=== PATIENT | male | born 1950 | race African-American/Black ===

== ENCOUNTER 2017-01-28 16:08 | Inpatient (IN) | payer OTHER, MEDICARE ==
[~2017-01-28] VITALS: Ht 177.8 cm; Wt 67.6 kg
--- NOTE | ~2017-01-28 | HC ---
[facility] [place] [address] CONSULTATION Name: GLENDY WICK Room #: 315-P ADM IN M.R.#: [id number] Admission: 01/28/17 Attend Phys: Charles Hogue Discharge: Date of : 52 Report #: [id number] THIS REPORT FOR: //name// CC: Oral Kellogg DATE OF SERVICE: 02/05/2017 We were asked to see the patient by Dr. Wang. HISTORY OF PRESENT ILLNESS: The patient is a 66-year-old admitted on 01/28/2017 with shortness of air. There is a history of shortness of breath with exertion and labored breathing over the week prior to admission. The patient has a home health nurse and the patient's family reports that the nurse "heard a lot of fluid on the left side." The patient states he has had a productive cough for months, but that this has not changed significantly. Sputum is clear without purulence or blood. The patient states there is some fluid retention at home as well. The patient reports he has chronic pulmonary problems. He is typically on 3-4 liters of oxygen at home. He walks very little and uses a wheelchair foremost for ambulation. There is no history of fever, chills, hemoptysis or GI complaints, but patient is a vague historian. He does state he fell, but cannot date the fall for me at all. He thinks it is in the past year and states he fell when bending over trying to reach article on the floor and states that related to the fall was excessive amounts of fentanyl patch. PAST MEDICAL HISTORY: Also significant for chronic obstructive pulmonary disease, respiratory failure, glaucoma, hypertension, herpes zoster, anxiety, heart failure, history of ethanol abuse, chronic pain, anemia, atrial fibrillation, encephalopathy and pressure ulcers. MEDICATIONS: At home alprazolam, Lyrica, fluticasone spray, albuterol, tamsulosin, Lovenox, Pulmicort, meropenem. ALLERGIES: CHLORPROMAZINE states patient has anaphylactic reaction; PROCHLORPERAZINE, anaphylaxis; THIORIDAZINE, anaphylaxis; TRIHEXYPHENIDYL, anaphylaxis, ULTANE, anaphylaxis. SOCIAL HISTORY: The patient states he is a former smoker and drinker, but has not consumed alcohol or tobacco in the last 3 years. REVIEW OF SYSTEMS: CONSTITUTIONAL: Negative for fever or chills. EYES: Negative for eye pain, visual change. [facility] [address] [place] [address] CONSULTATION Name: GLENDY WICK Room #: 315-P [facility] IN .R.#: [id number] Admission: 01/28/17 Attend Phys: Charles Hogue Discharge: Date of : 52 Report #: [id number] HEENT: Negative for hearing changes, ear drainage, neck stiffness, nasal or oral problems. RESPIRATORY: Positive for shortness of breath on exertion, sputum production. CARDIAC: Positive for fluid retention, negative for angina. GASTROINTESTINAL: Negative for nausea, vomiting, abdominal pain. GENITOURINARY: Negative for burning, frequency, urgency or blood. MUSCULOSKELETAL: Negative for bone pain, joint pain, back pain. SKIN: Negative for rash or infection. NEUROLOGIC: Negative for motor or sensory dysfunction. PHYSICAL EXAMINATION: VITAL SIGNS: Temperature 37.1, heart rate 77, respiratory rate 18, blood pressure 124/90, O2 sat 100% on 4 liters nasal cannula. HEENT: Normocephalic. Pupils are round and equal. No icterus. Mild arcus. NECK: No lymphadenopathy, no bruit. CHEST: Distant breath sounds. I do not hear rales or rhonchi. HEART: Rhythm is regular. Heart sounds are distant. ABDOMEN: Soft, no mass, no tenderness, question of fluid wave. EXTREMITIES: Pulses 2+ femoral, 2+ popliteal bilateral, right foot is in boots for heel ulcer. SKIN: No other rash or infection noted other than the skin problems related to the foot. NEUROLOGIC: No obvious motor or sensory dysfunction, although the patient does appear to be generally weak. He is oriented and appropriate. PSYCHIATRIC: Shows insight into problems, answers questions appropriately, but is a vague historian and he is vague on his answers to the review of systems questions. Radiology, patient has a new findings on his CT scan for which we were consulted. There is an air fluid level in the fissure between the middle and upper lobe with some pleural thickening, this is a loculated hydropneumothorax. In addition, there is quite close to pulmonary artery that is also seen right at the fissure. There does not appear to be any bleeding or extravasation, however. ASSESSMENT AND PLAN: This appears to be odd findings that does not have obvious clinical relevance, there is no evidence of acute infection. White blood cell count is actually low, which could be a common of normal variant related to the patient's status. The patient is afebrile. There is no history of change in sputum. The patient had a chest x-ray in June. There was some focal thickening seen in the fissure with generalized scarring. There is a history of a moderate size pseudotumor seen on previous studies. In any event, the findings is odd radiographically, it does not appear to have [address] [address] CONSULTATION Name: GLENDY WICK Room #: 315-P ADM IN M.R.#: [id number] Admission: 01/28/17 Attend Phys: Charles Hogue Discharge: Date of : 52 Report #: [id number] acute clinical significant, and the patient is generally weak and could not sustain any major procedure without risk. It is my recommendation and I have discussed this with Dr. Wang who shares this opinion that we should follow this for the time being and to avoid any invasive procedure at this point. Thank you for the consult. <ELECTRONICALLY SIGNED> By: Mauricio Julian MD 02/06/17 0933 [id number] [id number] Mauricio Julian MD /nt
--- NOTE | ~2017-01-28 | HC ---
[facility] [place] [address] CONSULTATION Name: GLENDY WICK Room #: 315-P ADM IN M.R.#: [id number] Admission: 01/28/17 Attend Phys: Charles Hogue Discharge: Date of : 52 Report #: [id number] THIS REPORT FOR: //name// CC: ORAL BALBUENA MD PRIMARY CARE PHYSICIAN: Oral Kellogg M.D. REFERRAL PHYSICIAN: Reagan Balbuena M.D. REASON FOR REFERRAL: Dyspnea. HISTORY OF PRESENT ILLNESS: The patient is a 66-year-old -[place] male with severe end-stage COPD, presents with progressive dyspnea. A pulmonary consultation was requested. The patient is known to this physician. He has known very severe COPD for many years. It is felt to be end stage. As a result, he has required mechanical ventilation with subsequent tracheostomy which was eventually decannulated. He has had numerous hospitalizations along with long-term care stay due to severe pulmonary disease and debility. Through all this, he is still able to do fairly well. Now he is quite debilitated. He states that he does not walk any more, primarily stays in bed. He currently resides at home with home health nurse. He gets help from his family. He had been in his usual state of health until about past week when he started to notice increasing dyspnea. He had a cough productive of secretions but unable to clear much of his secretions. Otherwise, denies any recent febrile illness, chest pain or hemoptysis. He has chronic hypoxic respiratory failure, on 3 liters of O2 chronically. He is on nebulized Pulmicort twice a day. He prefers a metered dose inhaler instead of nebulized bronchodilators. He states that it works better. He is currently on Advair along with Ellipta that he uses 1 puff once a day. He has albuterol metered dose inhaler, that he uses 2 puffs p.r.n. PAST MEDICAL HISTORY: As mentioned above, end-stage COPD with a past history of respiratory failure, tracheostomy tube, was decannulated about a year ago; progressive debility and weakness due to severe pulmonary impairment, now primarily bedridden; hypertension; anxiety disorder; history of heart failure; chronic pain syndrome; anemia of chronic disease and history of atrial [facility] [address] [place] [address] CONSULTATION Name: GLENDY WICK LILY DALE Room #: 315-P [facility] IN M.R.#: [id number] Admission: 01/28/17 Attend Phys: Charles Hogue Discharge: Date of : 52 Report #: [id number] fibrillation. PAST SURGICAL HISTORY: As mentioned above. ALLERGIES: To THIORIDAZINE, CHLORPROMAZINE and TRIHEXYPHENIDYL, reactions are anaphylaxis. He is also allergic to ____ which causes severe anaphylaxis. FAMILY HISTORY: Notable for gastric carcinoma in the father who . Mother . She had a history of lung cancer. SOCIAL HISTORY: He is , has 5 children. Continues to live at home with home health. He has a history of alcohol abuse in the past, but has stopped drinking. History of tobacco use, also stopped smoking few years ago, along with marijuana use. REVIEW OF SYSTEMS: As mentioned above; otherwise, is notable for progressive weakness and debility. Otherwise, 10-point system review negative. PHYSICAL EXAMINATION: GENERAL: He is awake and alert, in moderate respiratory distress. VITAL SIGNS: Temperature is 98.6 degrees Fahrenheit, pulse is 94, respiratory rate is 16, blood pressure 100/66 mmHg and saturation is 93%. HEENT: Normocephalic and atraumatic. NECK: Supple, without any lymphadenopathy or thyromegaly. CHEST: Breath sounds are reduced bilaterally with mild expiratory wheezes. Coarse breath sounds are heard in the bases. CARDIOVASCULAR: Normal S1 and S2. There are no murmurs, rubs or gallop. There is no JVD. There is no carotid bruit. Pulses are 2+/4+ bilaterally. ABDOMEN: Soft and nontender. No organomegaly or masses felt. GENITOURINARY: Deferred. RECTAL: Deferred. EXTREMITIES: No cyanosis or clubbing but remarkable 3/4+ bilateral pretibial edema. LABORATORY DATA: Chest x-ray shows cardiomegaly, increased interstitial markings, otherwise no obvious infiltrates. Electrolytes unremarkable except potassium of 3.4, bicarbonate is 41, creatinine is 1.2 and albumin 2.7. WBC 2600 without any evidence of bandemia, hemoglobin 11.1 and platelets are normal. Arterial blood gas revealed pH 7.36, pCO2 of 79 and pO2 of 63 on 3-1/2 liters of O2. IMPRESSION: 1. Rlypi-hy-szhsshq hypercapnic hypoxic respiratory failure due to exacerbation of chronic obstructive pulmonary disease. Based on the physical examination, the patient may have lower respiratory tract infection. 2. Chronic obstructive pulmonary disease, end stage, with exacerbation. [facility] [address] [place] [address] CONSULTATION Name: GLENDY WICK Room #: 315-P ADM IN M.R.#: [id number] Admission: 01/28/17 Attend Phys: Charles Hogue Discharge: Date of : 52 Report #: [id number] 3. Chronic hypercapnic hypoxic respiratory failure, on 3 liters of O2 chronically. 4. Progressive debility and weakness. 5. Lower extremity edema, may be related to malnutrition and hypoalbuminemia. Cor pulmonale cannot be ruled out given his severe pulmonary impairment. I agree with diuretic therapy. 6. Medical directive. He is a Full Code Blue. RECOMMENDATIONS: I agree with the current medical treatment, continue high dose corticosteroids, bronchodilators, mucolytics, IV fluids, broad spectrum antibiotics to cover for possible pneumonia and possible respiratory tract infection. Given his recent hospitalization, we will need to consider nosocomial organisms. Aspiration is also considered given his profound debility and weakness. DVT and GI prophylaxis will be addressed. Nutritional support is recommended. Overall, prognosis is poor given severe pulmonary impairment. The patient desires a Full Code Blue. Thank you for the consultation. <ELECTRONICALLY SIGNED> By: Drew Vallejo MD 02/09/17 1124 1227 [id number] Drew Vallejo MD /nt
--- NOTE | ~2017-01-28 | EKG ---
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 : 1950 Requested By: Dallas Hebert Order Number: [id number] MD: Darryl Alvarez Measurements Intervals [place] Rate: 81 P: -12 ME: 204 QRS: 93 QRSD: 110 T: 57 QT: 392 QTc: 455 Interpretive Statements Sinus rhythm Right axis deviation Borderline low voltage, extremity leads Baseline wander in lead(s) V4 Compared to ECG 11/18/2016 19:29:53 Sinus tachycardia no longer present ST (T wave) deviation no longer present Electronically Signed On 01-29-2017 8:05:56 CDT by Darryl Alvarez [email or web address] <ELECTRONICALLY SIGNED> By: Darryl Alvarez MD, [facility] 01/29/17 0805 1747 1747 Darryl Alvarez MD, [facility] /EPI
--- NOTE | ~2017-01-28 | H ---
[facility] [place] [address] HISTORY AND PHYSICAL Name: GLENDY WICK Room #: 315-P ADM IN M.R.#: [id number] Admission: 01/28/17 Attend Phys: Charles Hogue Discharge: Date of : 52 Report #: [id number] THIS REPORT FOR: //name// CC: Oral Kellogg DATE OF SERVICE: 01/28/2017 CHIEF COMPLAINT: Shortness of breath. HISTORY OF PRESENT ILLNESS: The patient is a 66-year-old gentleman with severe cardiopulmonary disease came in the Emergency Room with shortness of breath. Symptoms have progressed over 1-2 days' time. He denied any fever or chills or significantly productive cough. He has had multiple hospitalizations through the years related to his cardiopulmonary disease. Years ago, he was intubated and had a tracheostomy tube related to COPD and over about a 1-2 year time, gradually was weaned from the ventilator and subsequently decannulated. The last couple of years, he has been maintained at home generally on nasal cannula, although he has had exacerbations here at the hospital [facility] which required BiPAP. Currently, he only wears nasal cannula at home. PAST MEDICAL HISTORY: COPD; history of respiratory failure and intubation, ventilation about 3 years ago; emphysema; hypertension; herpes zoster; anxiety; history of CHF; chronic pain syndrome; anemia; has a reported history of atrial fibrillation. PAST SURGICAL HISTORY: Unknown. FAMILY HISTORY: Noncontributory. SOCIAL HISTORY: Remote chronic and alcohol use, but none currently. ALLERGIES: CHLORPROMAZINE, COMPAZINE, THORAZINE, TRIHEXYPHENIDYL, ULTANE. MEDICATIONS: Xanax 0.25 mg q. 6 hours p.r.n., Lyrica 25 mg t.i.d., Flonase nasal spray, albuterol inhaler, Flomax 0.4 mg, Advair 2 puffs b.i.d., increased the Ellipta 1 puff daily. REVIEW OF SYSTEMS: Denies headache, chest pain, abdominal pain, nausea, vomiting, diarrhea, constipation, dysuria, syncope. PHYSICAL EXAMINATION: VITAL SIGNS: Temperature 36.9, pulse 93, respirations 16, blood pressure 115/77, O2 sat 97% on liters. GENERAL: He is awake and alert, in no distress. LUNGS: Distant but clear. HEART: Regular. [facility] [address] [place] [address] HISTORY AND PHYSICAL Name: GLENDY WICK Room #: 315-P [facility] IN .R.#: [id number] Admission: 01/28/17 Attend Phys: Charles Hogue Discharge: Date of : 52 Report #: [id number] ABDOMEN: Soft, normoactive bowel sounds. EXTREMITIES: No edema. NEUROLOGIC: He has muscle atrophy throughout. LABORATORY DATA: White count is 2.6, hemoglobin 10.9, platelets 109, potassium 3.4. His BNP was 3100. Urinalysis was unremarkable. Chest x-ray suggested pulmonary edema. ASSESSMENT: 1. Acute on chronic diastolic congestive heart failure. 2. Chronic obstructive pulmonary disease. 3. Pulmonary hypertension. 4. Recent urinary retention. PLAN: He has been treated with IV Lasix and has had good response so far. His urine output is -2000 mL. A followup chest x-ray will be ordered and I will ask Dr. Wang to see him. Home medications to continue Lovenox for DVT prophylaxis. <ELECTRONICALLY SIGNED> By: Reagan Balbuena MD 01/30/17 0800 1016 1110 Reagan Balbuena MD /nt
[2017-01-28 16:08] VITALS: BP 132/77
[~2017-01-28 16:08] MED LIST: ACETAMINOPHEN500 M1 PO; ACIDOPHILUS1 EAC3 PO; ADVAIR HFA 230M12 GM INH; ALBUTEROL2.5 MG/0.1 INH; ALBUTEROL2.5 MG/0.5 INH; ALBUTEROL2.5 MG/31 INH; ALPRAZOLAM 0.0.25 M1 PO; BISACODYL SUPP10 MG RECTAL; CARVEDILOL3.125 MG PO; CATHFLO ACT2 MG/VIAL IV PUSH; CEFTRIAXONE40 MG/M1 IV; CIPROFLOXACIN500 M1 PO; CLORPACTIN WCS-92 GM IRRIG; COUMADIN 2.5MG2.5 M1 PO; COUMADIN 4 MG TA4 M1 PO; COUMADIN 5 MG TA5 M1 PO; CUBICIN500 MG IV; DAKIN'S473 M1; DORZOLAMIDE HCL10 ML OPHTHALMIC; DUONEB 2.5-0.5 M3 ML INH; ENOXAPARIN40 MG/0.1 SUBLING; ENOXAPARIN40 MG/0.1 SUBQ; FENTANYL PA25 MCG/HR TRANSDERM; FENTANYL PA50 MCG/HR TRANSDERM; FENTANYL PATCH75 MCG TRANSDERM; FLOMAX0.4 MG PO; FLONASE 0.05%50 MCG NASAL; FORTAZ1 GM IVPB; HYDRALAZINE 2525 MG PO; HYDROCODONE-APA1 TA1 PO; INCRUSE ELLI62.5 MCG IH; INCRUSE ELLI62.5 MCG INH; IPRAT-ALBUT 0.5-3 ML IH; KETOCONAZOLE60 GM TP; LACTULOSE10 GM/153 PO; LASIX 20 MG TAB20 MG PO; LASIX 40 MG TAB40 M2 PO; LATANOPROST 0.2.5 ML OPHTHALMIC; LATANOPROST2.5 ML OPHTHALMIC; LIDOCAINE TOP; LYRICA 50 MG50 MG PO; LYRICA25 MG PO; MELATONIN 5 MG1 EAC1 PO; MEROPENEM500 MG IV; METOPROLOL TART25 MG PO; MILK OF MA2400 MG/10 PO; MIRALAX17 GM PO; MUCINEX TA600 MG/TA2 PO; MUCUS ER600 MG PO; NORCO 10-325 T1 EACH PO; NORCO 5-325 TA1 EACH PO; PACERONE 200 M200 M1 PO; PAIN & FEVER325 MG PO; PEPCID20 MG PO; PIPERACIL-TA3.375 G1 IV; PREDNISONE 20 M20 MG PO; PREDNISONE 5 MG5 M1 PO; PULMICORT0.5 MG/21 INH; REMERON15 MG PO; ROCEPHIN 11 GM/1001 IV; SENNA LAXATIVE8.6 MG PO; SENNA PO; SENNA8.6 MG PO; SODIUM CHLORIDE10 ML FLUSH; SODIUM CHLORIDE10 ML IJ; SODIUM CHLORIDE50 M4 IVPB; SOLU-MEDRO40 MG/1 M1 IV PUSH; TRIAMCINOLONE A80 G2 TOP; UNICOMPLEX M TA1 TA1 PO; VANC750 IVPB; VANCOMYCIN HCL 11 G2 IV; VENTOLIN HFA 1818 GM INH; VITAMINC500 PO; XALATAN2.5 ML OPHTHALMIC; XANAX 0.25 MG0.25 MG PO; ZOSYN 3/0.373.375 G3 IV; ZOSYN 4.5 GRAM4.5 GM IV; [UNRECOGNIZED DRUG - REMARK] TRANSDERM
[2017-01-28 16:56] LABS: WBC 2.8 thou/uL (4.0-11.0)
[2017-01-28 16:58] LABS: HEMOGLOBIN 11.1 gm/dL (14.0-18.0); MANUAL DIFF YES; MCH 28.2 pg (26.0-34.0); MCHC 31.8 g/dL (28.0-37.0); MCV 88.8 fL (80.0-100.0); PLATELET COUNT 127 thou/uL (150-400); RBC 3.94 mil/uL (4.50-6.00); RDW 17.1 % (10.5-14.5)
[2017-01-28 17:21] LABS: ABSOLUTE NEUTROPHILS 2.1 thou/uL (1.4-8.2); ANISOCYTOSIS 1+; PLATELET ESTIMATE SLIGHTLY DECREASED; TOTAL CELL COUNT 100
[2017-01-28 17:22] LABS: HYPOCHROMASIA SLIGHT; LARGE PLATELETS FEW
[2017-01-28 18:12] LABS: URINE BILIRUBIN NEGATIVE (Negative); URINE BLOOD NEGATIVE (Negative); URINE COLOR YELLOW; URINE GLUCOSE-RANDOM* NEGATIVE (Negative); URINE KETONES NEGATIVE (Negative); URINE NITRITE NEGATIVE (Negative); URINE PROTEIN (DIPSTICK) 1+ (Negative); URINE UROBILINOGEN 0.2 E.U./dl (0.2-1.0)
[2017-01-28 18:26] LABS: HYALINE CASTS 0-3 Few /LPF (None Seen); SQUAMOUS None Seen /LPF (0-3); URINE WBC None Seen /HPF (0-5)
[2017-01-28 18:27] LABS: BACTERIA 1-9 Few /HPF (None Seen); CRYSTALS None Seen /LPF (None Seen); URINE RBC None Seen /HPF (0-2)
[2017-01-28 18:42] LABS: ANION GAP 1 mmol/L (7-16); BUN 15 mg/dL (7-18); CALCIUM 7.7 mg/dL (8.5-10.1); CHLORIDE 105 mmol/L (98-107); CO2 36 mmol/L (21-32); CREATININE 1.1 mg/dL (0.7-1.3); GLUCOSE 115 mg/dL (74-106); POTASSIUM 4.3 mmol/L (3.5-5.1); SODIUM 142 mmol/L (136-145)
[2017-01-28 18:54] LABS: ALBUMIN 2.7 g/dL (3.4-5.0); ALKALINE PHOSPHATASE 47 U/L (46-116); DIRECT BILIRUBIN < 0.1 mg/dL (<0.1-0.3); NT-PRO BRAIN NAT PEPTIDE 2341 pg/mL (<300); SGOT 17 U/L (15-37); SGPT 25 U/L (30-65); TOTAL BILIRUBIN 0.3 mg/dL (<0.1-1.0); TOTAL PROTEIN 5.7 g/dL (6.4-8.2); TROPONIN-I < 0.04 ng/mL (<0.04-0.07)
[2017-01-28 20:13] VITALS: BP 110/71
[2017-01-28 20:45] VITALS: BP 134/81
[2017-01-29 04:00] VITALS: BP 101/61
[2017-01-29 05:18] LABS: HEMATOCRIT 34.1 % (42.0-52.0); HEMOGLOBIN 10.9 gm/dL (14.0-18.0); MCH 28.3 pg (26.0-34.0); MCV 88.7 fL (80.0-100.0); RBC 3.85 mil/uL (4.50-6.00); RDW 16.3 % (10.5-14.5); WBC 2.6 thou/uL (4.0-11.0)
[2017-01-29 05:44] LABS: ALBUMIN 2.8 g/dL (3.4-5.0); CALCIUM 7.9 mg/dL (8.5-10.1); CREATININE 1.2 mg/dL (0.7-1.3); POTASSIUM 3.4 mmol/L (3.5-5.1); TOTAL BILIRUBIN 0.5 mg/dL (<0.1-1.0); TOTAL PROTEIN 6.1 g/dL (6.4-8.2)
[2017-01-29 08:04] VITALS: BP 115/77
[2017-01-29] MEDS ORDERED: INCRUSE ELLI62.5 MCG IH (09:05)
[2017-01-29] MEDS ORDERED: ADVAIR HFA 230M12 GM INH ×2 (09:07→09:09)
[2017-01-29 10:17] LABS: ABG SAMPLE TYPE ARTERIAL; BE(vivo) 15.9 mmol/L (-2 to +3); HCO3 44.6 mmol/L (22.0-26.0); LACTATE 0.59 mmol/L (0.5-2.0); O2(CT) 14.8 mL/dL (15.0-23.0); O2Hb 90.4 % (92.0-98.0); PO2 63.1 mmHg (80.0-100.0); pH 7.366 (7.360-7.450); sO2 90.2 % (92.0-98.0)
[2017-01-29 10:18] LABS: PCO2 79.6 mmHg (35.0-45.0); STICK SITE R.RADIAL
[2017-01-29 11:41] VITALS: BP 101/66
[2017-01-29 17:29] VITALS: BP 116/77
[2017-01-29 20:47] VITALS: BP 99/60
[2017-01-30 03:20] VITALS: BP 135/84
[2017-01-30 04:26] LABS: MCHC 31.8 g/dL (28.0-37.0)
[2017-01-30 04:27] LABS: HEMATOCRIT 34.7 % (42.0-52.0); MCH 27.9 pg (26.0-34.0); MCV 87.8 fL (80.0-100.0); RBC 3.95 mil/uL (4.50-6.00); RDW 16.1 % (10.5-14.5)
[2017-01-30 04:34] LABS: WBC 1.5 thou/uL (4.0-11.0)
[2017-01-30 04:36] LABS: CREATININE 1.5 mg/dL (0.7-1.3)
[2017-01-30 06:53] VITALS: BP 135/75
[2017-01-30 10:58] LABS: PROTIME 10.8 Seconds (9.3-11.4)
[2017-01-30 12:00] VITALS: BP 131/64
[2017-01-30 15:02] VITALS: BP 125/70
[2017-01-30 19:53] VITALS: BP 100/59
[2017-01-31 04:07] VITALS: BP 122/73
[2017-01-31 05:07] LABS: HEMATOCRIT 32.3 % (42.0-52.0); HEMOGLOBIN 10.3 gm/dL (14.0-18.0); MCH 27.9 pg (26.0-34.0); MCHC 31.9 g/dL (28.0-37.0); MCV 87.3 fL (80.0-100.0); RBC 3.7 mil/uL (4.50-6.00); RDW 15.9 % (10.5-14.5); WBC 2.9 thou/uL (4.0-11.0)
[2017-01-31 05:22] LABS: INR 1.1; PROTIME 11.4 Seconds (9.3-11.4)
[2017-01-31 05:28] LABS: CALCIUM 7.7 mg/dL (8.5-10.1); CREATININE 1.2 mg/dL (0.7-1.3); POTASSIUM 4.1 mmol/L (3.5-5.1)
[2017-01-31 07:50] VITALS: BP 122/89
[2017-01-31 12:09] VITALS: BP 112/81
[2017-01-31 17:33] VITALS: BP 131/72
[2017-01-31 19:39] VITALS: BP 122/73
[2017-02-01 04:09] VITALS: BP 140/76
[2017-02-01 04:45] LABS: INR 1.4; PROTIME 14.3 Seconds (9.3-11.4)
[2017-02-01 08:30] VITALS: BP 113/73
[2017-02-01 17:14] VITALS: BP 115/74
[2017-02-01 20:00] VITALS: BP 126/90
[2017-02-02 04:00] VITALS: BP 116/74
[2017-02-02 05:23] LABS: INR 1.7; PROTIME 17.7 Seconds (9.3-11.4)
[2017-02-02 05:26] LABS: CALCIUM 8.4 mg/dL (8.5-10.1); CREATININE 1.2 mg/dL (0.7-1.3); POTASSIUM 4.7 mmol/L (3.5-5.1)
[2017-02-02 08:53] VITALS: BP 150/87
[2017-02-02 16:25] VITALS: BP 120/81
[2017-02-02 20:00] VITALS: BP 108/85
[2017-02-03 05:31] LABS: INR 2.1; PROTIME 21.8 Seconds (9.3-11.4)
[2017-02-03 08:12] VITALS: BP 112/78
[2017-02-03 08:33] VITALS: BP 133/69
[2017-02-03 20:35] VITALS: BP 123/89
[2017-02-04 04:20] VITALS: BP 126/76
[2017-02-04 05:43] LABS: HEMATOCRIT 33.5 % (42.0-52.0); HEMOGLOBIN 10.6 gm/dL (14.0-18.0); MCHC 31.6 g/dL (28.0-37.0); MCV 88.6 fL (80.0-100.0); RBC 3.78 mil/uL (4.50-6.00); RDW 15.9 % (10.5-14.5); WBC 3.6 thou/uL (4.0-11.0)
[2017-02-04 05:56] LABS: INR 2.4; PROTIME 24.4 Seconds (9.3-11.4)
[2017-02-04 06:00] LABS: CALCIUM 8.2 mg/dL (8.5-10.1); CREATININE 1.3 mg/dL (0.7-1.3); POTASSIUM 4.6 mmol/L (3.5-5.1)
[2017-02-04 08:27] VITALS: BP 135/89
[2017-02-04 16:11] VITALS: BP 100/74
[2017-02-04 19:20] VITALS: BP 113/73
[2017-02-05 03:30] VITALS: BP 114/83
[2017-02-05 05:58] LABS: INR 2.5
[2017-02-05 06:00] LABS: CALCIUM 8.4 mg/dL (8.5-10.1); CREATININE 1.4 mg/dL (0.7-1.3); POTASSIUM 4.7 mmol/L (3.5-5.1)
[2017-02-05 08:46] VITALS: BP 129/91
[2017-02-05 15:34] VITALS: BP 124/90
[2017-02-05 21:00] VITALS: BP 120/80
[2017-02-06 08:17] LABS: CALCIUM 8.4 mg/dL (8.5-10.1); CREATININE 1.3 mg/dL (0.7-1.3); POTASSIUM 4.3 mmol/L (3.5-5.1)
[2017-02-06 08:46] LABS: INR 2.9
[2017-02-06 09:17] VITALS: BP 121/78
[2017-02-06 17:57] VITALS: BP 118/76
[2017-02-06 20:20] VITALS: BP 108/68
[2017-02-07 05:00] VITALS: BP 147/83
[2017-02-07 07:50] VITALS: BP 142/92
[2017-02-07 17:00] VITALS: BP 106/73
[2017-02-07 19:52] VITALS: BP 123/87
[2017-02-08] VITALS (8 sets, daily range): BP systolic 123–159; BP diastolic 73–94
[2017-02-08 06:36] LABS: INR 2.6; PROTIME 26.8 Seconds (9.3-11.4)
[2017-02-08 06:44] LABS: CALCIUM 8.2 mg/dL (8.5-10.1); CREATININE 1.1 mg/dL (0.7-1.3); POTASSIUM 4.7 mmol/L (3.5-5.1)
[2017-02-08] MEDS ORDERED: COUMADIN 2 MG TA2 M1 PO (13:09)
[2017-02-08] MEDS ORDERED: AUGMENTIN 875-1 EACH PO (13:09)
[2017-02-09 04:55] VITALS: BP 131/81
[2017-02-09 08:00] VITALS: BP 120/75
[2017-02-09] MEDS ORDERED: NORCO 10-325 T1 EACH PO (10:44)
[2017-02-09 11:16] LABS: ABG SAMPLE TYPE ARTERIAL; BE(vivo) 4.9 mmol/L (-2 to +3); HCO3 32.2 mmol/L (22.0-26.0); LACTATE 0.87 mmol/L (0.5-2.0); O2(CT) 16.6 mL/dL (15.0-23.0); O2Hb 97.3 % (92.0-98.0); PCO2 61.7 mmHg (35.0-45.0); PO2 122.4 mmHg (80.0-100.0); pH 7.336 (7.360-7.450); sO2 98.1 % (92.0-98.0); tCO2 34.1 mmol/L (24.0-30.0)
[2017-02-09 11:17] LABS: STICK SITE R.RADIAL
[2017-02-09 12:44] VITALS: BP 124/74
== END 2017-02-09 13:49 | disposition home health service (06) | DRG 291 ==
LOC: ER 16:08 → 3N 19:42 → EROBS 19:42 → 3N 20:20
PROVIDERS: Internal Medicine Geriatric Medicine; Internal Medicine Pulmonary Disease; Nurse Practitioner
DX: I11.0 Hypertensive heart disease with heart failure (principal); J96.21 Acute and chronic respiratory failure with hypoxia; G93.40 Encephalopathy, unspecified; J96.22 Acute and chronic respiratory failure with hypercapnia; N17.0 Acute kidney failure with tubular necrosis; J44.1 Chronic obstructive pulmonary disease with (acute) exacerbation; D61.818 Other pancytopenia; E46 Unspecified protein-calorie malnutrition; I50.33 Acute on chronic diastolic (congestive) heart failure; H40.9 Unspecified glaucoma; B02.9 Zoster without complications; F41.9 Anxiety disorder, unspecified; I48.91 Unspecified atrial fibrillation; D63.8 Anemia in other chronic diseases classified elsewhere; G89.4 Chronic pain syndrome; I27.2 Other secondary pulmonary hypertension; Z87.891 Personal history of nicotine dependence; Z68.21 Body mass index [BMI] 21.0-21.9, adult; Z88.8 Allergy status to other drugs, medicaments and biological substances; Z93.0 Tracheostomy status; Z79.01 Long term (current) use of anticoagulants; Z80.1 Family history of malignant neoplasm of trachea, bronchus and lung; Z79.899 Other long term (current) drug therapy
CPT/HCPCS: 10096